=== PATIENT | male | born 1990 | race Caucasian/White ===

== ENCOUNTER 2020-10-28 12:20 | Emergency (ER) | payer OTHER ==
[~2020-10-28] VITALS: Ht 180.3 cm; Wt 94.3 kg
--- NOTE | 2020-10-28 13:11 | REP ---
INDICATION: 4th digit injury COMPARISON: None. TECHNIQUE: Four views left 4th digit. FINDINGS: There is no evidence of acute fracture, dislocation, or intrinsic bone disease. IMPRESSION: No fracture or dislocation. <Electronically signed by Juan Alberto Ashley > 10/28/20 [id number]
[2020-10-28 15:00] VITALS: BP 143/76
== END 2020-10-28 15:01 | disposition home or self-care (01) ==
LOC: M ED 12:20
DX: S60.415A Abrasion of left ring finger, initial encounter (principal); S63.615A Unspecified sprain of left ring finger, initial encounter; W23.0XXA Caught, crushed, jammed, or pinched between moving objects, initial encounter; Y92.89 Other specified places as the place of occurrence of the external cause; Y99.0 Civilian activity done for income or pay